=== PATIENT | male | born 1975 | race Caucasian/White ===

== ENCOUNTER 2017-04-24 20:33 | Day surgery (SDC) | payer OTHER ==
[2017-04-24] MEDS ORDERED: BENZOCAINE ORAL 57 GM SPRAY PO ONE (20:44)
[2017-04-24] MEDS ORDERED: LORazepam 2 MG/1 ML VIAL IVP ONE (20:47)
[2017-04-24] MEDS ORDERED: GLUCAGON EMERGENCY KIT 1 MG KIT IVP ONE (20:47)
[2017-04-24] MEDS ORDERED: Glucagon Inj Vial 1 MG/ML VIAL ONE (20:50)
[2017-04-24] MEDS ORDERED: LORazepam 2 MG/1 ML VIAL ONE (20:50)
--- NOTE | 2017-04-24 20:53 | PDOC ---
Gen Adult / Medical Screen HPI - General Chief Complaint: General Medical Stated Complaint: something in throat Date Seen by Provider: 04/24/17 Time Seen by Provider: 20:48 Source: POSITIVE: Patient Exam Limitations: POSITIVE: No limitations Nurse's Notes Reviewed & Considered: Yes - Indicators Temperature Between 95 and 101 Degrees: Yes Respirations Between 12 and 20: Yes Blood Pressure Between 100-165 (sys) and 60-100 (ni): Yes Pulse Range Between 60-105 (100 for age > 60 years): Yes Severe Pain (Greater than 5/10 Reported): No Chest or Abdominal Pain: No Inability to Walk: No Pt Reports Active High Risk Cond. (TB/Hepatitis/HIV/Chemo): No Abnormal Mental Status: No - History of Present Illness Body Location Affected: REPORTS: Other (Throat) Timing: REPORTS: Abrupt Duration: 1/2 hour Similar Symptoms Previously: No Recent Care Received: REPORTS: Denies Any Prior Injuries Related to Current Complaint?: No - Patient Home Medications Home Medications: Home Medications Lisinopril 10 mg PO DAILY 12/02/12 - Patient Allergies Allergies/Adverse Reactions: Allergies Allergy/AdvReac Type Severity Reaction Status Date / Time Penicillins Allergy UNKNOWN Verified 04/24/17 20:49 Past Medical History - heen HEENT History: Denies History Cardiovascular History: Hypertension Respiratory History: Denies History Gastrointestinal History: Denies History Genitourinary History: Denies History Endocrine History: Denies History Musculoskeletal History: Other (please comment) Prosthesis or Implant: No Additional Musculoskeletal History: R KNEE SCOPE 1997 Neurological History: Denies History Blood Disorders: Denies History Psychiatric History: Denies History Cancer History: Denies History History of MDRO: No Alcohol Use: Occasionally Substance Use Type: None Previous Surgical History: Yes Type / Date of Surgery: 1997 KNEE SCOPE Anesthesia Reactions: No Malignant Hyperthermia: No Significant Family History: No pertinent family hx ROS - Limitations ROS Limitations: No Limitations Constitution: REPORTS: Denies Symptoms Cardiovascular: REPORTS: Denies Cardiac Symptoms Respiratory: REPORTS: Denies Resp Symptoms Neurological: REPORTS: Denies Neuro Symptoms Gastrointestinal: REPORTS: Other (Full bolus stuck in the upper esophagus.) Endocrine: REPORTS: Denies Symptoms Musculoskeletal: REPORTS: Denies MS Symptoms Genitourinary: REPORTS: Denies Symptoms Eyes: REPORTS: Denies Symptoms ENT: REPORTS: Denies Symptoms Skin: REPORTS: Denies Skin Symptoms Lympathic: REPORTS: Denies Lympathic Symptoms Immunologic: POSITIVE: Denies Symptoms Psychiatric: POSITIVE: Anxiety Gen Adult/Medical Screen Exam - General Appearance General Appearance: POSITIVE: Alert, Cooperative, No Evidence of Trauma, Anxious , Moderate Distress - HEENT HEENT: POSITIVE: Head Inspection Nml, Eyes Inspection Nml, Ears Inspection Nml, Nose Inspection Nml, Oral/Dental Inspect. Nml, PERRL, EOMI, Foreign Body Present (Upper esophagus at the esophagus laryngeal junction. Patient is unable to manage his secretions. Patient has a strong gag reflex, and even after Hurricaine spray, I'm unable to use the [facility] forceps to retrieve the food bolus. I am able to see the food bolus stuck in the upper esophagus.) - Pupils Pupil Size: 5 mm: Bilateral - Neck Neck: POSITIVE: Normal Inspection - Respiratory Respiratory: POSITIVE: No Respiratory Distress - Cardiovascular Cardiovascular: POSITIVE: Regular Rate & Rhythm, No Murmur, No Gallop, PMI Normal - Abdomen Abdomen: Soft: (All Quadrants), Normal Bowel Sounds: (All Quadrants), Denies Tenderness: (All Quadrants) - Neurological / Psychological Mental Status: POSITIVE: Mood Normal, Affect Normal Orientation: POSITIVE: Oriented x 3 - Skin Skin: POSITIVE: Normal Color, Warm, Dry, No Rash - Extremities Extremity: Non-Tender: (All Extremities), Normal ROM: (All Extremities), Normal Inspection: (All Extremities) Gen Adlt/Medical Scrn Progress - Patient's Progress Re-Examine Time: 21:33 (no improvement 30 minutes after glucagon and Ativan.) Status: POSITIVE: Unchanged - Consult Consult (If Yes, Name of Consulting MD & Time Called): Yes (Dr. Garsia [id number]) Consulting MD will see pt:: POSITIVE: [facility] Admit Patient Care Time - Estimated PCT Patient Care Time (In Minutes): 30 Vital Signs - Recent Vital Signs Vital Signs: Vital Signs (Last 8 hours) Temp Pulse Resp BP Pulse Ox 04/24/17 20:33 96.4 F L 99 22 130/98 95 - VS Reviewed Vital Signs Reviewed: Yes Discharge Clinical Impression: Foreign body in esophagus Discharge Disposition: Transferred to OR Condition: Stable Patient Instructions Given at Discharge: Esophageal Foreign Body (ED) Care Transferred To: Dr. Garsia, Surgeon
--- NOTE | 2017-04-24 22:05 | PDOC ---
History and Physical - History of Present Illness Date and Time of Service: 04/24/2017 at 2200 hrs. Chief Complaint: Has a piece roast beef throat History of Present Illness: This is a 42-year-old male while eating supper appropriate tooth. He states that the startling. He says that a piece of roast beef stuck in the upper part of esophagus. He can't even handle his saliva. He is a little hoarse voice. He is having no difficulty breathing. Past Medical History Medical History: Hypertension Tobacco Use: Current Every Day Smoker Do you dip or chew tobacco: No Substance Use Type: None Medication / Allergies Home Medications: Home Medications Medication Instructions Recorded Confirmed Type Lisinopril 10 mg PO DAILY 12/02/12 04/24/17 History Allergies/Adverse Reactions: Allergies Allergy/AdvReac Type Severity Reaction Status Date / Time Penicillins Allergy UNKNOWN Verified 04/24/17 20:49 Review of Systems - Review of Systems All Systems: Reviewed & No Additional Complaints Except as Stated Exam - Vitals Vital Signs: Vital Signs Temperature 96.4 F Temperature Source Temporal Artery Scan Pulse Rate [Pulse Oximeter] 99 Respiratory Rate 22 Blood Pressure [Right Arm] 130/98 Pulse Ox 95 Oxygen Delivery Method Room Air Height 5 ft 11 in Weight 137.892 kg - General General Appearance: POSITIVE: No Acute Distress - Eye Eye Exam: POSITIVE: PERRL - Respiratory Respiratory Exam: POSITIVE: Clear to Auscultation - Bilaterally, Breathing Non Labored - Cardiovascular Cardiovascular Exam: POSITIVE: RRR, No Murmur - GI/Abdominal GI/Abdominal Exam: POSITIVE: Normal Bowel Sounds, Non Tender Assessment and Plan - Patient Problems (1) Foreign body in esophagus Status: Acute - Assessment / Plan Additional Assessment/Plan Details: Would recommend the patient have an EGD. The risk and potential complications of the procedure were discussed with the patient.. They understood this. Also discussed alternatives diagnostic and treatment options. Also remove the foreign body. Risk involved with this is been discussed.
[2017-04-24] MEDS ORDERED: fentaNYL Inj 100 MCG/2 ML VIAL ONE (22:15)
--- NOTE | 2017-04-24 22:33 | GEN.OPNOTE ---
EGD Operative Note Surgery Date: 04/24/17 Preoperative Diagnosis: Foreign body in esophagus Postoperative Diagnosis: Foreign body in esophagus Procedure: Esophagogastroduodenoscopy with removal of foreign body Surgeon: Dominic Smith MD Anesthesia Provider: Almita Quiros CRNA Anesthesia Type: MAC Findings: Esophagus: The post video EGD scope inserted posterior pharynx. Then the upper part of esophagus under direct visualization. Piece of foreign body which appeared be meat was stuck 20 cm. Using the 3 prong grasper I was able to piecemealed out the form body until it was easily pushed down the esophagus. There is no evidence of esophagitis no masses tumors no stricture noted GE Junction : GE junction proximal be 42 centers from incisors Fundus : Patient's fundus was appeared be normal Body : Body of the stomach had an inflammatory changes consistent with his ibuprofen use Prepyloric : Prepyloric area had some inflammatory changes consistent ibuprofen use Small Intestine : First and second portion of the Small intestine as was within normal limits A lubricated flexible upper endoscope was inserted and passed through the esophagus and stomach into the duodenum. Additional Details: Patient will take his Nexium every day for the next 2 months. He should come off ibuprofen
[2017-04-24 23:40] VITALS: RESP 22; TEMP 98.4
[2017-04-24] MEDS ORDERED: Lactated Ringers 1,000 ML PRIMARY IV ONE (23:53)
== END 2017-04-24 23:12 | disposition home or self-care (01) ==
LOC: ER 20:33 → SDSC 22:00
PROVIDERS: ATTEND Surgery
DX: T18.128A Food in esophagus causing other injury, initial encounter (principal)
CPT/HCPCS: 43247; 96374; 96375; 99284 ×2; J1610; J2704; J3010; J2060; J7120